=== PATIENT | female | born 1960 | race Caucasian/White ===

== ENCOUNTER → 2016-09-14 | Outpatient (CLI) | payer OTHER ==
[~2016-09-14] MED LIST: ADVAIR IH; ALEVE220 MG PO; ALLEGRA60 MG PO; AMOXICILLIN/CLA1 TA1; ASTELIN NASAL S34 ML NS; BIAXIN500 MG PO; COZAAR; FLONASE NASAL S16 GM NS; GLUCOTROL 5M5 MG/TAB PO; LAMISIL250 MG PO; PREDNISONE10 MG; PREDNISONE20 MG PO; PROVENTIL0.09 MG/A1 IH; SINGULAIR10 MG PO; ULTRAM 50MG TAB50 MG PO; [UNRECOGNIZED DRUG - OTHER]
== END ==
LOC: MC.RAD 13:00
DX: Z12.31 Encounter for screening mammogram for malignant neoplasm of breast (principal); N63 Unspecified lump in breast

== ENCOUNTER → 2017-10-11 | Outpatient (CLI) | payer OTHER | LOC: MC.RAD 13:59 | DX: Z12.31 Encounter for screening mammogram for malignant neoplasm of breast (principal) ==

== ENCOUNTER 2018-07-22 14:29 | Emergency (ER) | payer OTHER ==
[~2018-07-22] VITALS: Ht 152.4 cm; Wt 63.6 kg
[2018-07-22 14:32] VITALS: BP 157/79; PULSE 102; TEMP 98.7
== END 2018-07-22 15:23 | disposition left against medical advice (07) ==
LOC: COL.ER 14:29
DX: T23.102A Burn of first degree of left hand, unspecified site, initial encounter (principal); X19.XXXA Contact with other heat and hot substances, initial encounter

== ENCOUNTER → 2020-12-17 | Outpatient (CLI) | payer OTHER | LOC: MC.RAD 10:10 | DX: Z12.31 Encounter for screening mammogram for malignant neoplasm of breast (principal); N64.89 Other specified disorders of breast ==

== ENCOUNTER → 2020-12-26 | Outpatient (CLI) | payer OTHER | LOC: MC.RAD 12-25 09:00 | DX: Z12.31 Encounter for screening mammogram for malignant neoplasm of breast (principal) ==

== ENCOUNTER 2021-04-25 11:54 | Emergency (ER) | payer OTHER ==
[~2021-04-25] VITALS: Ht 152.4 cm; Wt 65.9 kg
[2021-04-25] MEDS ORDERED: OMNICEF 300MG300 MG PO (12:20)
[2021-04-25 12:50] VITALS: BP 155/64; PULSE 96; TEMP 98.2
== END 2021-04-25 12:50 | disposition home or self-care (01) ==
LOC: COL.ER 11:54
DX: J20.9 Acute bronchitis, unspecified (principal); J45.909 Unspecified asthma, uncomplicated; Z79.899 Other long term (current) drug therapy